=== PATIENT | male | born 1965 | race Caucasian/White ===

== ENCOUNTER 2024-01-27 15:34 | Observation (INO) ==
[2024-01-27 16:38] LABS: Appearance Urine Clear (Clear); Bacteria Urine Automated None Seen (None Seen); Bilirubin Urine Negative (Negative); Blood Urine Negative (Negative); Cast Urine Automated 0-2 /lpf (0-2); Color Urine Yellow; Epithelial Cell Urine Auto 0-2 /hpf (0-2); Glucose Urine UA 1+ (Negative); Ketones Urine Trace (Negative); Leukocyte Esterase Urine Negative (Negative); Nitrite Urine Negative (Negative); Protein Urine 1+ (Negative); RBC Urine Automated 0-2 /hpf (0-2); Specific Gravity Urine 1.026 (1.000-1.030); Urobilinogen Urine Negative (Negative); WBC Urine Automated 0-5 /hpf (0-5); pH Urine 6.5 (4.5-7.5)
--- NOTE | 2024-01-27 16:39 | Emergency Department Note ---
History of Present Illness General Chief Complaint: Abdominal Pain Stated Complaint: SEVERE ABD PAINS Time Seen by Provider: 01/27/24 16:03 History of Present Illness Provider Complaint: abdominal pain Onset (ago): 1 day(s) Pain Consistency: constant Location: epigastric Severity: moderate Maximum Pain Intensity: 6 Current Pain Intensity: 6 Quality: + stabbing, + sharp and + other (Bloating) Relieved By: + nothing Exacerbated By: + nothing Context: no foreign travel, no possible food poisoning, no sick contacts, no recent antibiotic use, no recent surgery/procedure or no recent injury Associated Symptoms: no nausea, no vomiting, no diarrhea, no fever, no chills, no constipation, no dysuria, no hematemesis, no hematochezia, no melena, no hematuria, no syncope, no headache, no neck pain, no back pain, no chest pain, no breathing difficulty and no numbness Home Medications Medication Instructions Recorded Confirmed Type zrcjridx-by-zzpac 300 mcg-K 60 1 tab PO DAILY 02/18/20 08/14/23 History mcg-lycop 600 mcg-lutein 300 mcg tablet (Men 50 Plus Multivitamin) empagliflozin 10 mg tablet 10 mg PO DAILY #30 tabs 08/14/23 08/14/23 Rx (Jardiance) pantoprazole 40 mg tablet,delayed 20 mg PO DAILY esophageal ulcers, 01/27/24 History release (Protonix) barretts esophagus rosuvastatin 10 mg tablet 10 mg PO DAILY 01/27/24 History Allergies Allergy/AdvReac Type Severity Reaction Status Date / Time No Known Allergies Allergy Verified 08/14/23 10:04 Past Med/Surg History Problem List (Updated 01/27/24 @ 18:53 by Miguelangel Worthington MD) CKD (chronic kidney disease) Pancreatitis (Acute) Vitamin D deficiency Esophageal ulcer Encounter for pre-operative examination Medical History Stage 3b chronic kidney disease GERD (gastroesophageal reflux disease) Barretts esophagus no medications currently Gastric ulcer 02/2020 Hypertension denies HTN, takes Lisinopril for "higher kidney functions" Surgical History History of tonsillectomy History of esophagogastroduodenoscopy (EGD) History of colonoscopy Family History Father Colorectal cancer Other No family history of adverse response to anesthesia Denies family history of Crohn's disease Ulcerative colitis Social History Smoking Status: Never smoker Second Hand Exposure: No; Do You Dip or Chew Tobacco: Yes (1 can/ 2 weeks (advised)); Hx Alcohol Use: No Hx Substance Use: No Preferred Language: [place] Communication Ability: Effective [employer] Support [employer] Director Required: No Beliefs That Will Affect Care: None marital status: Single Current Living Situation: Alone current occupational status: employed Feels Safe at Home: Yes Assistive Devices: None Physical Exam 2 Vital Signs: Vital Signs - 24 hr 01/27/24 15:52 01/27/24 17:13 Temperature 36.5 C Temperature Source Temporal Artery Sc an Pulse Rate 82 54 L Respiratory Rate 18 Respiratory Effort / Characteristics Non-Labored Sponta neous Respiratory Depth Normal Respiratory Patter n Regular Blood Pressure 96/69 L Blood Pressure Jihan n 78 Pulse Oximetry 95 Oxygen Delivery Me thod Room Air Sepsis Recent Feve r Within 48 Hours No Sepsis New/Unexpla ined Change in Men rodney Status N/A Sepsis Action Take n by Nursing No Action Required Physical Exam: Physical Exam GENERAL: oriented to person, place, and time. appears well-developed and well- nourished. She does not appear distressed. HENT: Exam performed. -Head: Normocephalic and atraumatic. -Right Ear: External ear normal. No mastoid erythema -Left Ear: External ear normal. No mastoid erythema -Mouth/Throat: The oropharynx is clear and moist. No trismus in the jaw. No dental abscesses or uvula swelling. No oropharyngeal exudate or tonsillar abscesses. EYES: Conjunctivae and EOM are normal.Right eye exhibits no discharge. Left eye exhibits no discharge. No scleral icterus. NECK: Normal range of motion. Neck supple. No JVD present. No tracheal deviation and normal range of motion present. CV: Normal rate, regular rhythm, normal heart sounds and intact distal pulses. There is no peripheral edema. Palpable radial pulses bue. PULM/CHEST: Effort normal and breath sounds normal. No respiratory distress. No stridor. no wheezes.no rales. -Chest Wall: no tenderness to palpation ABD: The abdomen is soft. Bowel sounds are normal. no distension. No mass is present. There is tenderness to palpation of the epigastric area as well as the right lower quadrant. There is no rebound, no guarding, no Ohara's sign. Rovsig negative MUSC/SKEL: Normal range of motion. There is no peripheral edema, tenderness or deformity. NEURO: Motor and sensation grossly intact. SKIN: Skin is warm and dry. not diaphoretic. PSYCH: normal mood and affect. Behavior is normal. Judgment and thought content normal. Course Course 1603: The patient was evaluated in room B12. A complete history and physical exam was performed Cardiac monitoring: An order was placed for continuous cardiac monitoring. The monitor shows a rate of 80 with sinus rhythm interpreted by me 1800: Vital signs stable. Labs and imaging are consistent with pancreatitis. Patient be admitted to the [facility] team. Administered Medications Discontinued Medications Sodium Chloride (Nss) 1,000 mls @ 999 mls/hr IV .Q1H1M ONE Stop: 01/27/24 18:06 Last Infusion: 01/27/24 18:29 Dose: Infused Documented By: Admin: 01/27/24 17:25 Dose: 999 mls/hr Documented By: ARNULFO Ioversol (Optiray 320 100ml) 94 ml IV ONCE ONE Stop: 01/27/24 17:08 Last Admin: 01/27/24 17:07 Dose: 94 ml Documented By: KAREN Ketorolac Tromethamine (Ketorolac Tromethamine 15 Mg/Ml Vial) 15 mg IV NOW STA Stop: 01/27/24 17:07 Last Admin: 01/27/24 17:25 Dose: 15 mg Documented By: ARNULFO Ondansetron HCl (Ondansetron Inj 2 Mg/Ml 2 Ml Vial) 4 mg IV NOW STA Stop: 01/27/24 17:07 Last Admin: 01/27/24 17:25 Dose: 4 mg Documented By: ARNULFO Medical Decision Making Laboratory Data Attestation: I reviewed the patient's lab results. 01/27/24 16:15 01/27/24 16:15 Lab Results 01/27/24 Range/Units 16:15 WBC 12.84 H (4.8-10.8) K/ul RBC 4.83 (4.70-6.10) M/uL Hgb 14.5 (14.0-18.0) g/dl Hct 41.2 L (42.0-52.0) % MCV 85.3 (80.0-100.0) fL MCH 30.0 (25.0-34.0) pg MCHC 35.2 (32.0-36.0) g/dL RDW Std Deviation 35.8 L (36.4-46.3) fL RDW Coeff of Kaia 11.7 (11.5-14.5) % Plt Count 148 (130-400) K/uL MPV 10.2 (9.4-12.4) fL Immature Gran % (Auto) 0.3 % Neut % (Auto) 82.9 % Lymph % (Auto) 9.3 % Callahan % (Auto) 6.9 % Eos % (Auto) 0.2 % Baso % (Auto) 0.4 % Neut # (Auto) 10.65 H (1.40-6.50) K/uL Lymph # (Auto) 1.19 L (1.20-3.40) K/uL Callahan # (Auto) 0.88 H (0.11-0.59) K/uL Eos # (Auto) 0.03 (0.00-0.50) K/uL Baso # (Auto) 0.05 (0.00-0.20) K/uL Immature Gran # (Auto) 0.04 (0.01-0.20) K/uL Sodium 136 (136-145) mmol/L Potassium 4.2 (3.5-5.1) mmol/L Chloride 107 (98-107) mmol/L Carbon Dioxide 23 (21-32) mmol/L Anion Gap 6 (3-11) BUN 23 (6-23) mg/dl Creatinine 1.40 (0.6-1.4) mg/dl Est Cr Clr Drug Dosing 66.9 ml/min Est GFR ( Amer) 63.7 ml/min Est GFR (Non-Af Amer) 55.0 ml/min BUN/Creatinine Ratio 16.4 (10-20) Glucose 113 H (70-99(Fasting)) mg/dl Calcium 9.2 (8.6-10.3) mg/dl Total Bilirubin 0.6 (0.2-1.0) mg/dl AST 32 (13-39) U/L ALT 25 (7-52) U/L Alkaline Phosphatase 106 H (34-104) U/L Total Protein 7.0 (6.0-8.3) gm/dl Albumin 4.3 (3.4-5.0) gm/dl Globulin 2.7 (2.5-4.0) gm/dl Albumin/Globulin Ratio 1.6 (0.9-2) Lipase 326 H (11-82) U/L Urine Color Yellow Urine Appearance Clear (Clear) Urine pH 6.5 (4.5-7.5) Ur Specific Lincoln 1.026 (1.000-1.030) Urine Protein 1+ H (Negative) Urine Glucose (UA) 1+ H (Negative) Urine Ketones Trace H (Negative) Urine Blood Negative (Negative) Urine Nitrite Negative (Negative) Urine Bilirubin Negative (Negative) Urine Urobilinogen Negative (Negative) Ur Leukocyte Esterase Negative (Negative) Urine WBC (Auto) 0-5 (0-5) /hpf Urine RBC (Auto) 0-2 (0-2) /hpf U Hyaline Cast (Auto) 0-2 (0-2) /lpf U Epithel Cells (Auto) 0-2 (0-2) /hpf Urine Bacteria (Auto) None Seen (None Seen) Imaging Data Radiologist's Impression: Abdomen/Pelvis CT 01/27/24 16:17 CT SCAN OF THE ABDOMEN AND PELVIS WITH IV CONTRAST CLINICAL HISTORY: Epigastric and right lower quadrant abdominal pain. COMPARISON STUDY: No priors. TECHNIQUE: Following the IV administration of 94 cc of Optiray 320, CT scan of the abdomen and pelvis is performed from the lung bases to the proximal femora. Images are reviewed in the axial, sagittal, and coronal planes. IV contrast was administered without complication. A dose lowering technique was utilized adhering to the principles of ALARA. CT DOSE: 1310.85 mGy.cm FINDINGS: Lung bases: The heart is normal in size and without pericardial effusion. There is coronary artery atherosclerosis. A 3 mm right lower lobe pulmonary nodule is seen on image #11, and a 4 mm pleural-based nodule in the right middle lobe as seen on image #48. A 3 mm pleural-based nodule in the right lower lobe seen on image #23. The lung bases are otherwise clear noting dependent atelectasis. Liver: The contrast-enhanced liver is normal in size, contour, and attenuation. There is no intrahepatic biliary ductal dilatation. The hepatic veins and portal veins are patent. Gallbladder: Unremarkable. Spleen: Normal in size and attenuation. Pancreas: The pancreas is mildly atrophic. There is peripancreatic infiltration and trace fluid, the appearance is consistent with acute pancreatitis. The gland enhances throughout. No organized peripancreatic fluid collection is identified. The splenic vein is patent. Adrenal glands: Unremarkable. Kidneys: The contrast enhanced kidneys are normal in size and without hydronephrosis. The kidneys enhance symmetrically. Abdominal vasculature: The abdominal aorta is normal in course and caliber. There is a fat-containing umbilical hernia. Bowel: There is mild colonic diverticulosis without CT evidence of acute diverticulitis. No bowel obstruction is seen. Oflw-lo-etfbognq fecal retention is noted throughout the colon. The appendix is well-visualized and normal. Peritoneum: No intraperitoneal free air is identified. There is trace free fluid in the pelvis. Lymphadenopathy: None. Pelvic viscera: The bladder, prostate, and seminal vesicles are normal as visualized. Skeletal structures: No lytic or blastic lesions are seen. IMPRESSION: 1. Findings are consistent with acute pancreatitis. Correlate with clinical and laboratory findings. 2. The gland enhances throughout and no peripancreatic fluid collection is identified. 3. Trace free fluid in the pelvis is likely reactive. 4. Mild colonic diverticulosis without CT evidence of acute diverticulitis. 5. Coronary artery atherosclerosis. Consider nonemergent cardiology assessment. 6. Low suspicion pulmonary pleural-based nodules measure up to 4 mm. A follow-up chest CT in 3-4 months time is recommended for reassessment and full evaluation of the thorax. 7. Additional findings as above. ACT 112: Positive. There are findings on this exam that require communication between the performing entity and the patient following Patient Test Result Information Act ([place] Act 112) guidelines. Electronically signed by: Anatoly Villalba M.D. 01/27/2024 5:44 PM ECG Data Attestation: I personally reviewed and interpreted this ECG as follows: Indication: abdominal pain Rate (beats per minute): 58 Rhythm: normal sinus Findings: no ST depression, no ST elevation or no prolonged QT MDM Narrative 1603: The patient was evaluated in room B12. A complete history and physical exam was performed Cardiac monitoring: An order was placed for continuous cardiac monitoring. The monitor shows a rate of 80 with sinus rhythm interpreted by me 1800: Vital signs stable. Labs and imaging are consistent with pancreatitis. Patient be admitted to the [facility] hospitalist team. Impression & Plan Pancreatitis Discharge Plan Visit Data Chief Complaint: Abdominal Pain Stated Complaint: SEVERE ABD PAINS ED Provider: Miguelangel Worthington Discharge Problem: Pancreatitis Patient Disposition: Admitted As Inpatient Forms Stand Alone Forms: [facility] Prescriptions Prescriptions: No Action Jardiance 10 mg tablet 10 mg PO DAILY Qty: 30 2RF Rx Instructions: filled 10/09 Men 50 Plus Multivitamin 300-600-300 mcg Tablet 1 tab PO DAILY rosuvastatin 10 mg tablet 10 mg PO DAILY Rx Instructions: last filled 10/30 for 90 day supply pantoprazole [Protonix] 40 mg tablet,delayed release (DR/EC) 20 mg PO DAILY Referrals Referrals: PCP,NO [Primary Care Provider] - Discharge Problem: Pancreatitis Qualifiers: Chronicity: acute Pancreatitis type: unspecified pancreatitis type Acute pancreatitis complication: unspecified Qualified Code(s): K85.90 - Acute pancreatitis without necrosis or infection, unspecified
[2024-01-27 16:40] LABS: Basophils # (auto) 0.05 K/uL (0.00-0.20); Basophils % (auto) 0.4 %; Eosinophils # (auto) 0.03 K/uL (0.00-0.50); Eosinophils % (auto) 0.2 %; Hematocrit (blood only) 41.2 % (42.0-52.0); Hemoglobin 14.5 g/dl (14.0-18.0); Immature Granulocytes # (auto) 0.04 K/uL (0.01-0.20); Immature Granulocytes % (auto) 0.3 %; Lymphocytes # (auto) 1.19 K/uL (1.20-3.40); Lymphocytes % (auto) 9.3 %; Mean Corpuscular Hgb Conc 35.2 g/dL (32.0-36.0); Mean Corpuscular Volume 85.3 fL (80.0-100.0); Mean Platelet Volume 10.2 fL (9.4-12.4); Monocytes # (auto) 0.88 K/uL (0.11-0.59); Monocytes % (auto) 6.9 %; Neutrophils # (auto) 10.65 K/uL (1.40-6.50); Neutrophils % (auto) 82.9 %; Platelet Count 148 K/uL (130-400); RDW Coefficient of Variation 11.7 % (11.5-14.5); RDW Standard Deviation 35.8 fL (36.4-46.3); Red Blood Count 4.83 M/uL (4.70-6.10); White Blood Count 12.84 K/ul (4.8-10.8)
[2024-01-27 16:56] LABS: Albumin Globulin Ratio 1.6 (0.9-2); Albumin Level 4.3 gm/dl (3.4-5.0); BUN Creatinine Ratio 16.4 (10-20); Bilirubin,Total 0.6 mg/dl (0.2-1.0); Calcium 9.2 mg/dl (8.6-10.3); Creatinine Clr Calc Pharmacy 66.9 ml/min; Est GFR (African American) 63.7 ml/min; Globulin 2.7 gm/dl (2.5-4.0); Potassium 4.2 mmol/L (3.5-5.1)
[2024-01-27] MEDS: OPTIRAY 320 100ml IV ONE (17:07)
[2024-01-27] MEDS: ONDANSETRON INJ 2 MG/ML 2 ML VIAL IV STA (17:25)
[2024-01-27] MEDS: KETOROLAC TROMETHAMINE 15 MG/ML VIAL IV STA (17:25)
[2024-01-27] MEDS: SODIUM CHLORIDE 0.9% 1,000 ML IV ONE (17:25)
--- NOTE | 2024-01-27 17:46 | CT Scan Report ---
CT SCAN OF THE ABDOMEN AND PELVIS WITH IV CONTRAST CLINICAL HISTORY: Epigastric and right lower quadrant abdominal pain. COMPARISON STUDY: No priors. TECHNIQUE: Following the IV administration of 94 cc of Optiray 320, CT scan of the abdomen and pelvi s is performed from the lung bases to the proximal femora. Images are reviewed in the axial, sagittal , and coronal planes. IV contrast was administered without complication. A dose lowering technique wa s utilized adhering to the principles of ALARA. CT DOSE: 1310.85 mGy.cm FINDINGS: Lung bases: The heart is normal in size and without pericardial effusion. There is coronary artery at herosclerosis. A 3 mm right lower lobe pulmonary nodule is seen on image #11, and a 4 mm pleural-base d nodule in the right middle lobe as seen on image #48. A 3 mm pleural-based nodule in the right lowe r lobe seen on image #23. The lung bases are otherwise clear noting dependent atelectasis. Liver: The contrast-enhanced liver is normal in size, contour, and attenuation. There is no intrahepa tic biliary ductal dilatation. The hepatic veins and portal veins are patent. Gallbladder: Unremarkable. Spleen: Normal in size and attenuation. Pancreas: The pancreas is mildly atrophic. There is peripancreatic infiltration and trace fluid, the appearance is consistent with acute pancreatitis. The gland enhances throughout. No organized peripan creatic fluid collection is identified. The splenic vein is patent. Adrenal glands: Unremarkable. Kidneys: The contrast enhanced kidneys are normal in size and without hydronephrosis. The kidneys enh ance symmetrically. Abdominal vasculature: The abdominal aorta is normal in course and caliber. There is a fat-containing umbilical hernia. Bowel: There is mild colonic diverticulosis without CT evidence of acute diverticulitis. No bowel obs truction is seen. Tenx-gd-cjvwhnew fecal retention is noted throughout the colon. The appendix is we ll-visualized and normal. Peritoneum: No intraperitoneal free air is identified. There is trace free fluid in the pelvis. Lymphadenopathy: None. Pelvic viscera: The bladder, prostate, and seminal vesicles are normal as visualized. Skeletal structures: No lytic or blastic lesions are seen. IMPRESSION: 1. Findings are consistent with acute pancreatitis. Correlate with clinical and laboratory findings. 2. The gland enhances throughout and no peripancreatic fluid collection is identified. 3. Trace free fluid in the pelvis is likely reactive. 4. Mild colonic diverticulosis without CT evidence of acute diverticulitis. 5. Coronary artery atherosclerosis. Consider nonemergent cardiology assessment. 6. Low suspicion pulmonary pleural-based nodules measure up to 4 mm. A follow-up chest CT in 3-4 vinny hs time is recommended for reassessment and full evaluation of the thorax. 7. Additional findings as above. ACT 112: Positive. There are findings on this exam that require communication between the performing entity and the patient following Patient Test Result Information Act ([place] Act 112) guidelines. Electronically signed by: Anatoly Villalba M.D. 01/27/2024 5:44 PM
--- NOTE | 2024-01-27 18:21 | History & Physical Report ---
Date of Service January 27, 2024 Assessment & Plan (1) Pancreatitis: Plan: Abdominal pain 2/2 acute pancreatitis CTA/P: Consistent with acute pancreatitis. Mild diverticulosis without diverticulitis. Pleural-based nodules up to 4 mm, CT in 3 to 4 months for reassessment recommended. No evidence of biliary disease or obstruction, there is no transaminitis. Calcium is normal Given right upper quadrant discomfort with greasy foods and 2 episodes preceding this, is suspicious for passed gallstone pancreatitis. He does not show any signs currently of obstruction either on lab work or on CT. Will obtain an MRCP to rule out small stones. If this is normal given right upper quadrant pain with greasy foods would also follow-up with a HIDA scan. Will make n.p.o. at midnight. Differential includes idiopathic and medication induced. Patient is on dapagl iflozin for the last 4 months which can be associated pancreatitis. This is temporarily held Lipid panel added, ddx includes hypertriglyceridemia pancreatitis LR 120 cc/h. Patient received 1 L NSS bolus in the ER for hypotension with subsequent improvement Creatinine normal Lipase 326 Clears as tolerated, n.p.o. if worsening pain Zofran, morphine ordered for pain control (2) CKD (chronic kidney disease): Plan: CKD 3 Baseline creatinine 1.61.7 Patient was not able to tolerate RENE/ARB due to hypotension. Was started on Jardiance which is held as noted Plan Chronic stable issues: Bustamante's esophagus, GERD: Continue PPI Hyperlipidemia: Statin temporarily held while LFTs trended DVT prophylaxis: Heparin subcu Diet: Clears, n.p.o. at midnight CODE STATUS: Full code Disposition: Medical surgical History of Present Illness Primary Care Provider: NO PCP Avelino is a 58-year-old male with a past medical history of Bustamante's esophagus, CKD 3, hyperlipidemia who presents with abdominal pain and is recommended for admission for acute pancreatitis. Calvin reports he has had a couple intermittent episodes of right upper quadrant abdominal discomfort which has not lasted more than 30 minutes. He does have a history of GERD for which he takes Protonix, also has Bustamante's esophagus. He had an episode of recurrent pain which was longer in duration and lasted until he came into the ER after eating a greasy meal last night. Has had pain in his right upper quadrant and some in the epigastrium. He has not had any george colored stools, and has not had diarrhea. He has had no fever, chills, sweats or recent URI symptoms. He does not drink any alcohol He did start dapagliflozin last September Medical History: Reviewed Medications: Reviewed Surgical History: Reviewed Family history: Reviewed Allergies: Reviewed Social History: Reviewed. No alcohol use. 1 can of chew approximately every 3 days. Code Status: Full Allergies Allergy/AdvReac Type Severity Reaction Status Date / Time No Known Allergies Allergy Verified 08/14/23 10:04 Home Medications Medication Instructions Recorded Confirmed Type ztsgvkll-uv-mrqih 300 mcg-K 60 1 tab PO DAILY 02/18/20 01/27/24 History mcg-lycop 600 mcg-lutein 300 mcg tablet (Men 50 Plus Multivitamin) empagliflozin 10 mg tablet 10 mg PO DAILY #30 tabs 08/14/23 01/27/24 Rx (Jardiance) pantoprazole 40 mg tablet,delayed 20 mg PO DAILY esophageal ulcers, 01/27/24 01/27/24 History release (Protonix) barretts esophagus rosuvastatin 10 mg tablet 10 mg PO DAILY 01/27/24 01/27/24 History Past Med/Surg History Problem List (Updated 01/28/24 @ 14:10 by Mariama Weinstein MD) Pulmonary nodule Pancreas divisum CKD (chronic kidney disease) Pancreatitis (Acute) Vitamin D deficiency Esophageal ulcer Encounter for pre-operative examination Medical History Stage 3b chronic kidney disease GERD (gastroesophageal reflux disease) Barretts esophagus no medications currently Gastric ulcer 02/2020 Hypertension denies HTN, takes Lisinopril for "higher kidney functions" Surgical History History of tonsillectomy History of esophagogastroduodenoscopy (EGD) History of colonoscopy Family History Father Colorectal cancer Other No family history of adverse response to anesthesia Denies family history of Crohn's disease Ulcerative colitis Social History Smoking Status: Never smoker Second Hand Exposure: No; Do You Dip or Chew Tobacco: Yes; Hx Alcohol Use: No Hx Substance Use: No Preferred Language: Italian Communication Ability: Effective Bonderizer Required: No Beliefs That Will Affect Care: None marital status: Single Current Living Situation: Alone current occupational status: employed Feels Safe at Home: Yes Safety Concerns: Feels Safe At This Time Assistive Devices: Denture - Lower and Glasses Physical Exam Physical Exam: General: A&Ox3. NAD. Cooperative. HEENT: Atraumatic, normocephalic. Vision/hearing intact Pulm: CTAB A&P. -wheezes, -rales, -rhonchi. Symmetrical chest rise. No increased work of breathing. No respiratory distress. Cardiac: RRR, -mrg. Radial pulses intact and symmetrical. Abdominal: Nontender, nondistended, soft. BS present. Pt endorses prior RUQ/epigastric pain which has improved Results & Data Results & Data Vital Signs (Past 12 Hours) Vital Signs Temp Pulse Resp BP Pulse Ox O2 Del Method 01/27/24 17:13 54 L 01/27/24 15:52 36.5 C 82 18 96/69 L 95 Room Air PG Care Time/CCT Total # of Minutes Spent Total Time Spent with Patient: Total time spent is greater than 50% in coordination of care (as documented) at patient's floor/unit and/or counseling patient: Coding Level of Care Code 58913 INT INP/OBS CARE 375MIN Diagnoses Pancreatitis K85.90 CKD (chronic kidney disease) N18.9
[2024-01-27] MEDS ORDERED: ONDANSETRON INJ 2 MG/ML 2 ML VIAL IV PRN (18:43)
[2024-01-27] MEDS ORDERED: MoRPHine SULFATE 4 MG/ML 1 ML CARP\\VIAL IV PRN (18:43)
[2024-01-27] MEDS: PANTOprazole 40 MG TAB PO STA (18:53)
[2024-01-27] MEDS: MoRPHine SULFATE 2 MG/ML CARP IV PRN (18:53)
[2024-01-27] MEDS: LACTATED RINGER'S 1,000 ML IV SCH (18:53)
[2024-01-27 19:12] LABS: Chol HDL Ratio 3.4 (0-5)
[2024-01-27] MEDS ORDERED: POLYETHYLENE (MIRALAX) 17 GM PACK PO PRN (19:54)
[2024-01-27] MEDS: HEPARIN SOD 5,000 UNIT/0.5 ML VIAL SQ SCH (21:07)
[2024-01-28 05:58] LABS: Albumin Globulin Ratio 1.6 (0.9-2); Albumin Level 3.7 gm/dl (3.4-5.0); BUN Creatinine Ratio 14.7 (10-20); Bilirubin,Total 0.9 mg/dl (0.2-1.0); Calcium 8.5 mg/dl (8.6-10.3); Creatinine Clr Calc Pharmacy 65.5 ml/min; Est GFR (African American) 62.1 ml/min; Est GFR (Non-African American) 53.6 ml/min; Globulin 2.3 gm/dl (2.5-4.0); Potassium 4.3 mmol/L (3.5-5.1)
[2024-01-28 06:07] LABS: Basophils # (auto) 0.03 K/uL (0.00-0.20); Basophils % (auto) 0.3 %; Eosinophils # (auto) 0.07 K/uL (0.00-0.50); Eosinophils % (auto) 0.6 %; Hematocrit (blood only) 38.9 % (42.0-52.0); Hemoglobin 13.3 g/dl (14.0-18.0); Immature Granulocytes # (auto) 0.02 K/uL (0.01-0.20); Immature Granulocytes % (auto) 0.2 %; Lymphocytes # (auto) 1.28 K/uL (1.20-3.40); Lymphocytes % (auto) 11.7 %; Mean Corpuscular Hemoglobin 30.2 pg (25.0-34.0); Mean Corpuscular Hgb Conc 34.2 g/dL (32.0-36.0); Mean Corpuscular Volume 88.2 fL (80.0-100.0); Mean Platelet Volume 10.5 fL (9.4-12.4); Monocytes # (auto) 0.99 K/uL (0.11-0.59); Neutrophils # (auto) 8.58 K/uL (1.40-6.50); Neutrophils % (auto) 78.2 %; Platelet Count 124 K/uL (130-400); RDW Coefficient of Variation 11.9 % (11.5-14.5); RDW Standard Deviation 38.3 fL (36.4-46.3); Red Blood Count 4.41 M/uL (4.70-6.10); White Blood Count 10.97 K/ul (4.8-10.8)
--- NOTE | 2024-01-28 07:37 | Electrocardiogram Report ---
Test Reason : Blood Pressure : */* mmHG Vent. Rate : 58 BPM Atrial Rate : 58 BPM P-R Int : 158 ms QRS Dur : 96 ms QT Int : 420 ms P-R-T Axes : 26 -8 4 degrees QTcB Int : 412 ms Sinus bradycardia Minimal voltage criteria for LVH, may be normal variant ( R in aVL ) Borderline ECG No previous ECGs available Confirmed by Fili Childress ([id number]) on 01/28/2024 7:37:40 AM Referred By: REFERRED SELF Confirmed By: Fili Childress
--- NOTE | 2024-01-28 08:42 | XRay Report ---
ORBIT RADIOGRAPHS 3 VIEWS HISTORY: pre-MRI screening. COMPARISON: None. FINDINGS: There are no radiopaque foreign bodies identified within the orbits. IMPRESSION: No radiopaque foreign bodies identified within the orbits. ACT 112: Negative or not required by law. Electronically signed by: Amari Merrill M.D. 01/28/2024 8:40 AM
--- NOTE | 2024-01-28 10:05 | Magnetic Resonance Report ---
MR MRCP HISTORY: suspected gallstone pancreatitis TECHNIQUE: MRCP of the abdomen was performed without contrast according to standard departmental prot ocol. COMPARISON STUDY: Abdomen and pelvis CT 01/27/2024. FINDINGS: No pleural effusions. Normal marrow signal intensity seen throughout the visualized osseous structures. The liver, spleen, adrenal glands, and kidneys are unremarkable. Mild bilateral perineph maddie edema is noted. No hydronephrosis. No retroperitoneal lymphadenopathy. Normal caliber abdominal a radha. The main portal vein is patent. The visualized loops of bowel show no wall thickening or obstru ction. Although suboptimally assessed due to the motion artifact there is suggestion of a few tiny ga llstones/sludge within the fundus of the gallbladder. No gallbladder wall thickening. The common bile duct is normal in course and caliber. The distal common bile duct is partially obscured by motion ar tifact. No definite filling defects within the common bile duct. There is evidence for pancreas divis um. The main pancreatic duct is normal and course and caliber. Peripancreatic edema again noted consi stent with an acute pancreatitis. No loculated fluid collections identified. IMPRESSION: 1. Mild peripancreatic edema consistent with an acute pancreatitis. This is similar to the prior stud y. 2. There may be a few small stones/sludge within the gallbladder. No gallbladder wall thickening. 3. The main pancreatic duct appears to be normal in course and caliber. No filling defects within the common bile duct. 4. Suggestion of pancreas divisum. ACT 112: Negative or not required by law. Electronically signed by: Amari Merrill M.D. 01/28/2024 10:03 AM
[2024-01-28] MEDS: ACETAMINOPHEN 325 MG TAB PO PRN (10:13)
--- NOTE | 2024-01-28 14:11 | Hospitalist Progress Note ---
Date of Service January 28, 2024 Assessment & Plan (1) Pancreatitis: Plan: Patient presents with epigastric abdominal pain radiating through to the back that was fairly severe in nature. Lipase elevated at 326, LFTs normal except for mildly elevated alkaline phosphatase which is chronic. CT A/P Consistent with acute uncomplicated pancreatitis but no issues with the gallbladder noted on CT. He has never had pancreatitis before He does not drink any alcohol, triglycerides checked and normal, calcium levels are normal. He is on Jardiance for the last 4 months which can cause pancreatitis MRCP obtained and shows pancreas divisum and acute pancreatitis as well as some small stones/sludge in the gallbladder. No filling defects in the CBD and main pancreatic duct normal-pancreas divisum can certainly be a cause of pancreatitis perhaps in combination with the Jardiance Improving with bowel rest, IV fluids, pain control. H&H have dropped appropriately and vital signs are normal. Urine output has not been recorded Advance diet to clear liquids, maintain current fluid rate at 125 mL/h Pain control as needed with IV morphine Zofran as needed for antiemetic but he is not nauseated Consider GI referral as an outpatient for pancreas divisum for sphincterotomy (2) Pancreas divisum: Plan: Needs referral to outpatient GI (3) CKD (chronic kidney disease): Plan: Baseline creatinine 1.61.7, follows with nephrology-thought to be possibly secondary to PPI use (necessary for Bustamante's esophagus) versus previous ATN wi thout recovery Patient was not able to tolerate RENE/ARB due to hypotension. Was started on Jardiance which is held as noted Creatinine stable today at 1.43 Follow BMP and avoid nephrotoxins (4) Pulmonary nodule: Plan: Pleural-based nodules up to 4 mm, CT in 3 to 4 months for reassessment recommended-discussed with patient He does have a remote smoking history Plan Chronic stable issues: Bustamante's esophagus, GERD: Continue PPI Hyperlipidemia: Statin temporarily held while LFTs trended DVT prophylaxis: Heparin subcu Disposition: Continued stay medical surgical unit, possible advance to low-fat diet tomorrow and discharge later tomorrow Admission and Anticipated Discharge Date Admission Date: January 27, 2024 Anticipated date of discharge: 01/29/24 Subjective Patient reports his pain in the upper abdomen is much improved from yesterday is down to a 3-4/10 in severity, does radiate through to the back. Denies nausea. He has not moved his bowels since admission. No chest pains or shortness of breath. Physical Exam Constitutional: WD/WN, vitals as above Neck: trachea midline, no thyromegaly Respiratory: normal respiratory effort, lungs clear to auscultation Cardiovascular: RRR, no murmur, no edema Chest (Breasts): Chest: normal inspection of chest Gastrointestinal (Abdomen): Inspection/Auscultation: abdomen normal to inspection and normal bowel sounds; abdomen not distended Percussion/Palpation: + abdomen tender (Mild in epigastric and LUQ without guarding or rebound) and abdomen soft Musculoskeletal: Extremities: extremities normal to inspection; no cyanosis and no clubbing Skin: no rashes, warm and dry Neurologic: moves all extremities and awake; no focal motor deficits Psychiatric: A+Ox3, euthymic affect Lymphatic: no lymphedema Results & Data Results & Data Vital Signs (Past 12 Hours) Vital Signs Temp Pulse Resp BP Pulse Ox O2 Del Method 01/28/24 07:56 Room Air 01/28/24 07:11 36.9 C 64 14 97/58 L 92 Room Air Laboratory Results CBC, BMP, triglycerides, LFTs reviewed PG Care Time/CCT Total # of Minutes Spent Total Time Spent with Patient: Total time spent is greater than 50% in coordination of care (as documented) at patient's floor/unit and/or counseling patient: Coding Level of Care Code 99463 SUB INP/OBS CARE 2/35MIN Diagnoses Pancreatitis K85.90 Acute pancreatitis complication: unspecified Chronicity: acute Pancreatitis type: unspecified pancreatitis type Pancreas divisum Q45.3 CKD (chronic kidney disease) N18.9 Pulmonary nodule R91.1 (1) Pancreatitis Acute pancreatitis complication: unspecified Chronicity: acute Pancreatitis type: unspecified pancreatitis type Qualified Code(s): K85.90 - Acute pancreatitis without necrosis or infection, unspecified
[2024-01-29 07:18] LABS: Basophils # (auto) 0.04 K/uL (0.00-0.20); Basophils % (auto) 0.3 %; Eosinophils # (auto) 0.16 K/uL (0.00-0.50); Eosinophils % (auto) 1.4 %; Hematocrit (blood only) 38.1 % (42.0-52.0); Hemoglobin 12.7 g/dl (14.0-18.0); Immature Granulocytes # (auto) 0.06 K/uL (0.01-0.20); Immature Granulocytes % (auto) 0.5 %; Lymphocytes # (auto) 1.23 K/uL (1.20-3.40); Lymphocytes % (auto) 10.5 %; Mean Corpuscular Hemoglobin 29.7 pg (25.0-34.0); Mean Corpuscular Hgb Conc 33.3 g/dL (32.0-36.0); Mean Platelet Volume 10.7 fL (9.4-12.4); Monocytes # (auto) 0.96 K/uL (0.11-0.59); Monocytes % (auto) 8.2 %; Neutrophils # (auto) 9.27 K/uL (1.40-6.50); Neutrophils % (auto) 79.1 %; Platelet Count 116 K/uL (130-400); RDW Coefficient of Variation 11.8 % (11.5-14.5); RDW Standard Deviation 38.3 fL (36.4-46.3); Red Blood Count 4.28 M/uL (4.70-6.10); White Blood Count 11.72 K/ul (4.8-10.8)
[2024-01-29 07:47] LABS: Albumin Globulin Ratio 1.5 (0.9-2); Albumin Level 3.6 gm/dl (3.4-5.0); BUN Creatinine Ratio 9.8 (10-20); Bilirubin,Total 1.4 mg/dl (0.2-1.0); Calcium 8.8 mg/dl (8.6-10.3); Creatinine Clr Calc Pharmacy 76.7 ml/min; Est GFR (African American) 75.3 ml/min; Est GFR (Non-African American) 64.9 ml/min; Globulin 2.4 gm/dl (2.5-4.0); Magnesium 2.1 mg/dl (1.7-2.4); Potassium 4.1 mmol/L (3.5-5.1)
--- NOTE | 2024-01-29 12:39 | Hospitalist Progress Note ---
Date of Service January 29, 2024 Assessment & Plan (1) Pancreatitis: Plan: Nonalcoholic. Mild on admission. I suspect this was due to a past gallstone. Diet has been advanced and IV fluids tapered down. (2) Pancreas divisum: Plan: Incidental finding on MRCP (3) CKD (chronic kidney disease): Plan: Baseline creatinine 1.61.7. Monitor intake and output. Serial labs (4) Pulmonary nodule: Plan: Pleural-based nodules up to [address] in 3 to 4 months for reassessment recommended by radiology. This will discussed with patient. He does have a remote smoking history Plan Bustamante's esophagus, GERD: Continue PPI Hyperlipidemia: Statin temporarily on hold held while LFTs trended Disposition: Hopeful discharge to home tomorrow, January 29 Admission and Anticipated Discharge Date Admission Date: January 27, 2024 Subjective Alert and oriented. No distress. Diet has been advanced to full liquids and IV fluids taper down. Like patient has improved to 107. I suspect the acute pancreatitis was due to a passed gallstone. MRCP reveals cholelithiasis and sludge. Incidental finding of pancreas divisum. PCP can discussed with patient the possibility of elective outpatient laparoscopic cholecystectomy. Review of Systems 2 Review of Systems: Constitutionalno fever or chills ENTno blurred vision, no double vision, no epistaxis, no sore throat Respiratoryno cough, no wheezing, no shortness of breath Cardiacno palpitations, no chest pain, no syncope Yuval nausea, vomiting, diarrhea, melena, hematochezia GUno urinary retention, no urinary incontinence, no dysuria, no hematuria Musculoskeletalno joint pain, no muscle tenderness Skinno bruising, no rashes, no pruritus Neurono isolated weakness, no paresthesia, no weakness Psychno depression, no anxiety Physical Exam 2 Physical Exam: General-alert and oriented x3, no fever, no chills HEENT-head atraumatic and normocephalic, pupils equal and reactive to light, extraocular muscles intact Neck-no lymphadenopathy or thyromegaly, trachea midline Chest-clear to auscultation. No rales, wheezing or rhonchi Cardiac-regular rate and rhythm, normal S1 and S2 Abdomen-normal bowel sounds, no hepatosplenomegaly Extremities-no cyanosis, clubbing, or edema Neuro-cranial nerves II through XII intact, motor and sensory function within normal limits, strength symmetrical, no focal deficits Psych-normal affect, normal mood Results & Data Results & Data Vital Signs (Past 12 Hours) Vital Signs Temp Pulse Resp BP Pulse Ox O2 Del Method 01/29/24 08:30 Room Air 01/29/24 07:55 36.6 C 84 16 118/70 96 Room Air Laboratory Results 01/29/24 06:25 01/29/24 06:25 PG Care Time/CCT Total # of Minutes Spent Total Time Spent with Patient: Total time spent is greater than 50% in coordination of care (as documented) at patient's floor/unit and/or counseling patient: Coding Level of Care Code 94688 SUB INP/OBS CARE 3/50MIN Diagnoses Pancreatitis K85.90 Acute pancreatitis complication: unspecified Chronicity: acute Pancreatitis type: unspecified pancreatitis type Pancreas divisum Q45.3 CKD (chronic kidney disease) N18.9 Pulmonary nodule R91.1 (1) Pancreatitis Acute pancreatitis complication: unspecified Chronicity: acute Pancreatitis type: unspecified pancreatitis type Qualified Code(s): K85.90 - Acute pancreatitis without necrosis or infection, unspecified
[2024-01-29] MEDS ORDERED: Nursing to Pharmacy Communication SCH (20:00)
[2024-01-30 06:16] LABS: Basophils # (auto) 0.04 K/uL (0.00-0.20); Basophils % (auto) 0.4 %; Eosinophils % (auto) 4.1 %; Hematocrit (blood only) 38.5 % (42.0-52.0); Immature Granulocytes # (auto) 0.02 K/uL (0.01-0.20); Immature Granulocytes % (auto) 0.2 %; Lymphocytes # (auto) 1.42 K/uL (1.20-3.40); Lymphocytes % (auto) 14.6 %; Mean Corpuscular Hemoglobin 29.7 pg (25.0-34.0); Mean Corpuscular Hgb Conc 33.8 g/dL (32.0-36.0); Mean Corpuscular Volume 87.9 fL (80.0-100.0); Mean Platelet Volume 10.3 fL (9.4-12.4); Monocytes # (auto) 0.82 K/uL (0.11-0.59); Monocytes % (auto) 8.4 %; Neutrophils # (auto) 7.03 K/uL (1.40-6.50); Neutrophils % (auto) 72.3 %; Platelet Count 125 K/uL (130-400); RDW Coefficient of Variation 11.7 % (11.5-14.5); RDW Standard Deviation 37.7 fL (36.4-46.3); Red Blood Count 4.38 M/uL (4.70-6.10); White Blood Count 9.73 K/ul (4.8-10.8)
[2024-01-30 06:24] LABS: Albumin Globulin Ratio 1.4 (0.9-2); Albumin Level 3.7 gm/dl (3.4-5.0); BUN Creatinine Ratio 11.1 (10-20); Bilirubin,Total 0.9 mg/dl (0.2-1.0); Est GFR (African American) 79.2 ml/min; Est GFR (Non-African American) 68.3 ml/min; Globulin 2.7 gm/dl (2.5-4.0); Total Protein 6.4 gm/dl (6.0-8.3)
[2024-01-30 07:10] VITALS: BP 123/74; PULSE 46; RESP 16; TEMP 97.7; O2SAT 97
--- NOTE | 2024-01-30 12:31 | Discharge Summary ---
Discharge Summary Date of Service January 30, 2024 Principal Dx & Hospital Course #1 = Principal Diagnosis (1) Pancreatitis: Nonalcoholic. Mild on admission. I suspect this was due to a passed gallstone. Lipase has normalized. He is tolerating a low-fat diet. IV fluids have been discontinued. He will discuss with his PCP possible outpatient laparoscopic cholecystectomy in the future (2) Pancreas divisum: Incidental finding on MRCP (3) CKD (chronic kidney disease): Baseline creatinine 1.61.7. Stable. Monitor intake and output. Serial labs (4) Pulmonary nodule: Pleural-based nodules up to [address] in 3 to 4 months for reassessment recommended by radiology. This will discussed with patient. He does have a remote smoking history Plan Bustamante's esophagus, GERD: Continue PPI Hyperlipidemia: Statin temporarily on hold while hospitalized. He will resume at discharge Disposition: Home today, January 29 Admission HPI Per Admitting Provider Avelino is a 58-year-old male with a past medical history of Bustamante's esophagus, CKD 3, hyperlipidemia who presents with abdominal pain and is recommended for admission for acute pancreatitis. Calvin reports he has had a couple intermittent episodes of right upper quadrant abdominal discomfort which has not lasted more than 30 minutes. He does have a history of GERD for which he takes Protonix, also has Bustamante's esophagus. He had an episode of recurrent pain which was longer in duration and lasted until he came into the ER after eating a greasy meal last night. Has had pain in his right upper quadrant and some in the epigastrium. He has not had any george colored stools, and has not had diarrhea. He has had no fever, chills, sweats or recent URI symptoms. He does not drink any alcohol He did start dapagliflozin last September Medical History: Reviewed Medications: Reviewed Surgical History: Reviewed Family history: Reviewed Allergies: Reviewed Social History: Reviewed. No alcohol use. 1 can of chew approximately every 3 days. Code Status: Full Discharge Exam General-alert and oriented x3, no fever, no chills HEENT-head atraumatic and normocephalic, pupils equal and reactive to light, extraocular muscles intact Neck-no lymphadenopathy or thyromegaly, trachea midline Chest-clear to auscultation. No rales, wheezing or rhonchi Cardiac-regular rate and rhythm, normal S1 and S2 Abdomen-normal bowel sounds, no hepatosplenomegaly Extremities-no cyanosis, clubbing, or edema Neuro-cranial nerves II through XII intact, motor and sensory function within normal limits, strength symmetrical, no focal deficits Psych-normal affect, normal mood Discharge Plan Discharge Items Patient Disposition: Home - Self-Care Reason For Visit: ACUTE PANCREATITIS Discharge Diagnosis: Acute pancreatitis of suspected gallstone passage etiology Activity: Resume your previous activity Non-emergency contact: Primary Care Provider Call non-emergency contact if: your symptoms worsen Follow-up/Referrals: Brenden Rodriguez MD [Primary Care Provider] - Diet: Regular Addtl Attending Provider Instructions: See PCP as soon as possible to discuss possible elective laparoscopic cholecystectomy Pending Studies at Discharge: No Stand-Alone Forms: My Interventional Spine, Smoking Cessation Medications and DC Order Prescriptions: Continued Jardiance 10 mg tablet 10 mg PO DAILY Qty: 30 2RF Men 50 Plus Multivitamin 300-600-300 mcg Tablet 1 tab PO DAILY rosuvastatin 10 mg tablet 10 mg PO DAILY pantoprazole [Protonix] 40 mg tablet,delayed release (DR/EC) 20 mg PO DAILY Discharge Orders: Discharge Order (Routine); Ordered 01/30/24 Ordered By: Manfred Rivera Admission Data Admit Date/Time: 01/27/24 18:47 Attending Provider: Manfred Rivera Admit Provider: John Rosa Primary Care Provider: Brenden Rodriguez Other Providers: John Rosa Hospital Stay Data Consultations 01/27/24 18:04 ED Decision to Admit Stat Diagnostic Imagining Performed 01/27/24 16:17 CT abd pelvis IV con only Stat 01/27/24 18:43 MR MRCP Routine Pending Results Patient Have Any Pending Studies at Discharge: No Discharge Instructions Given to Patient (Per Discharging Provider) See PCP as soon as possible to discuss possible elective laparoscopic cholecystectomy Total Time Total Time Spent Total Time Spent (In Minutes): 45 minutes Coding Level of Care Code 34217 INP/OBS DISCH >30 MIN Diagnoses Pancreatitis K85.90 Acute pancreatitis complication: unspecified Chronicity: acute Pancreatitis type: unspecified pancreatitis type Pancreas divisum Q45.3 CKD (chronic kidney disease) N18.9 Pulmonary nodule R91.1
== END 2024-01-30 14:10 | disposition home or self-care (01) | DRG 439 ==
LOC: ED 15:34 → SUATTDRO 18:47 → 3W 18:47 → INTOOBSV 18:47 → 3W 19:30